=== PATIENT | male | born 2000 | race African-American/Black ===

== ENCOUNTER 2020-07-12 14:21 | Emergency (ER) | payer BC, OTHER ==
[2020-07-12] MEDS ORDERED: ACETAMINOPHEN 500 MG TABLET (FP) PO ONE (14:26)
--- NOTE | 2020-07-12 14:26 | PDOC ---
Rapid Medical Evaluation Time Seen by Provider: 07/12/20 14:24 Medical Evaluation: Allergies Allergy/AdvReac Type Severity Reaction Status Date / Time naproxen sodium [From Aleve] Allergy Verified 02/07/20 12:14 07/12/20 14:24 I performed a brief in-person evaluation of this patient. Pt is a 19 y/o male who punched a wall and is now having R hand swelling and pain. He denies any past medical history. Allergies to NSAIDs with swelling. Pertinent physical exam findings: R hand swelling over the 5th MCP, sensation intact, brisk refill I have ordered the following: Tylenol, R hand xray Patient to proceed to ED for further evaluation. Discharge Disposition - Diagnosis Injury of right hand - Referrals - Patient Instructions - Post Discharge Activity
[2020-07-12 14:47] VITALS: BP 102/74; PULSE 74; TEMP 97.6; BMI 20.9
--- NOTE | 2020-07-12 15:15 | PDOC ---
History of Present Illness - General Chief Complaint: Injury Stated Complaint: RT FINGER INJURY Time Seen by Provider: 07/12/20 14:24 History Source: Patient - History of Present Illness Occurred: reports: this afternoon Severity: reports: moderate Upper Extremity Pain Location: right: 5th finger Past History - Medical History Allergies/Adverse Reactions: Allergies Allergy/AdvReac Type Severity Reaction Status Date / Time naproxen sodium [From Aleve] Allergy Verified 07/12/20 14:35 Home Medications: Ambulatory Orders No Home Medications 0 dose .ROUTE UTDICT 10/12/12 Epinephrine [Epipen 2-Rodri] 0.3 mg IJ ASDIR #1 kit 10/11/17 Acetaminophen [Tylenol -] 1,000 mg PO Q6H #50 tablet 07/12/20 COPD: No - Immunization History Immunization Up to Date: Yes - Psycho-Social/Smoking History Smoking Status: No Smoking History: Unknown if ever smoked Have you smoked in the past 12 months: Yes Number of Cigarettes Smoked Daily: 0 Review of Systems - Review of Systems Musculoskeletal: Yes: Joint Pain, Joint Swelling Neurological: No: Numbness, Tingling *Physical Exam - Vital Signs Last Vital Signs Temp Pulse Resp BP Pulse Ox 97.6 F 74 16 102/74 100 07/12/20 14:38 07/12/20 14:38 07/12/20 14:38 07/12/20 14:38 07/12/20 14:38 - Physical Exam General Appearance: Yes: Appropriately Dressed, Moderate Distress HEENT: positive: Normal Voice Neck: negative: Supple Respiratory/Chest: negative: Respiratory Distress Extremity: positive: Swelling (over volar aspect of distal R 5th MCP) Integumentary: positive: Dry, Warm Neurologic: positive: Fully Oriented, Alert, Normal Mood/Affect Procedures - Splinting Splint Location: Right: Hand Pre-Proc Neuro Vasc Exam: normal Hand-Made Type: orthoglass Splint Type: Yes: Ulnar Post-Proc Neuro Vasc Exam: normal Riley Bandage: 4" (2) Sling: Yes Complications: No Post splint xray: No ED Treatment Course - Medications Given in the ED: ED Medications Discontinued Medications Generic Name Dose Route Start Last Admin Trade Name Freq PRN Reason Stop Dose Admin Acetaminophen 1,000 mg 07/12/20 14:26 07/12/20 14:48 Tylenol - PO 07/12/20 14:27 1,000 mg ONCE ONE Administration Medical Decision Making - Medical Decision Making 07/12/20 15:14 19-year-old male here with right fifth digit pain and swelling after punching a wall today. No numbness or tingling See exam Boxer's fracture with mild volar displacement S/p ulnar gutter splint in ED with sling given Dc with pain control and orthopedic follow-up in 2 weeks as discussed with patient Discharge - Discharge Information Problems reviewed: Yes Clinical Impression/Diagnosis: Boxers fracture Qualifiers: Encounter type: initial encounter Fracture type: closed Qualified Code(s): S62.339A - Displaced fracture of neck of unspecified metacarpal bone, initial encounter for closed fracture Condition: Good Disposition: HOME - Additional Discharge Information Prescriptions: Acetaminophen [Tylenol -] 1,000 mg PO Q6H #50 tablet - Follow up/Referral Referrals: Karan Hills DO [Staff Physician] - - Patient Discharge Instructions Patient Printed Discharge Instructions: Boxer's Fracture Additional Instructions: You have a fracture called a boxer's fracture which is fracture of your fifth digit in your hand. Most of these fractures heal in time without surgery. You need to keep the splint in place until you can see an orthopedic for further management and follow-up. Please use sling to elevate hand above your heart including while asleep to help with swelling Take Tylenol as needed for pain You were given contact information for Dr. Hills of orthopedics. Please call and make an appointment to be seen in 2 weeks for cast placement - Post Discharge Activity
== END 2020-07-12 15:17 | disposition home or self-care (01) ==
LOC: JER 14:21
PROC: 2W3CX1Z Immobilization of Right Lower Arm using Splint (ICD-10-PCS; principal; 2020-07-12)
DX: S62.339A Displaced fracture of neck of unspecified metacarpal bone, initial encounter for closed fracture (principal)
CPT/HCPCS: 73130-TC-RT-FY; 99283-25

== ENCOUNTER 2023-08-30 02:59 | Emergency (ER) | payer BC, OTHER ==
[2023-08-30 03:10] VITALS: BP 110/69; PULSE 80; RESP 18; TEMP 98; BMI 23.0
== END 2023-08-30 04:19 | disposition home or self-care (01) ==
LOC: JER 02:59
DX: S62.339 Displaced fracture of neck of unspecified metacarpal bone (principal); M79.641 Pain in right hand; W22.01XA Walked into wall, initial encounter
CPT/HCPCS: 73110-TC-RT-FY; 73130-TC-RT-FY; 99283-25